=== PATIENT | male | born 1990 | race Caucasian/White ===

== ENCOUNTER 2023-05-25 13:47 | Outpatient (AMB) | payer OTHER, SELFPAY ==
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
== END 2023-05-25 15:03 | disposition home or self-care (01) ==
PROVIDERS: Visit Provider Neurological Surgery
DX: M51.16 Intervertebral disc disorders with radiculopathy, lumbar region (principal); Z98.1 Arthrodesis status
CPT/HCPCS: 99204

== ENCOUNTER → 2023-05-25 13:47 | Outpatient (BNVA) | payer OTHER, SELFPAY | PROVIDERS: Visit Provider Neurological Surgery | DX: M51.16 Intervertebral disc disorders with radiculopathy, lumbar region (principal); Z98.1 Arthrodesis status | CPT/HCPCS: 99202 ==

== ENCOUNTER 2023-06-14 09:27 | Inpatient (IN) | payer OTHER, SELFPAY ==
--- NOTE | 2023-06-08 | ECG_ITS ---
Test Reason : PREOP Blood Pressure : / mmHG Vent. Rate : 098 BPM Atrial Rate : 098 BPM P-R Int : 156 ms QRS Dur : 104 ms QT Int : 334 ms P-R-T Axes : 071 019 053 degrees QTc Int : 426 ms Normal sinus rhythm Incomplete right bundle branch block Borderline ECG No previous ECGs available Referred By: Kita Koenig Electronically Signed By:ADAN WALTON MD
[2023-06-08 12:14] VITALS: BP 154/82; PULSE 99; RESP 20; O2SAT 97; BMI 36.5
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
[2023-06-08 13:37] LABS: Hematocrit 38.7 % (42.0-52.0); Hemoglobin 13.2 g/dl (14.0-18.0); Mean Corpuscular HGB Conc 34.1 g/dl (31.0-36.0); Mean Corpuscular Hemoglobin 28.5 pg (27.0-33.0); Mean Corpuscular Volume 83.6 fL (80.0-98.0); Platelet Count 263 X10*3/uL (160-400); Red Blood Count 4.63 X10*6/uL (4.60-5.80); Red Cell Distribution Width 12.2 % (11.0-16.0); White Blood Count 13.5 X10*3/uL (4.8-10.8)
[2023-06-08 14:42] LABS: Anion Gap 9 (12-20); Blood Urea Nitrogen 16 mg/dL (9-16); Calcium 9.7 mg/dL (8.4-10.2); Carbon Dioxide 31 mmol/L (22-29); Chloride 102 mmol/L (96-108); Creatinine Clr Calc Pharmacy 182.5; Estimated Glomerular Filt Rate > 60; Glucose Random 105 mg/dL (60-115); Potassium 4.2 mmol/L (3.3-5.1); Sodium 138 mmol/L (135-145)
[2023-06-14] VITALS (14 sets, daily range): BP systolic 130–175; BP diastolic 56–101; PULSE 79–108; RESP 16–20; TEMP 36.5–36.7; O2SAT 93–99; BMI 35.7
--- NOTE | ~2023-06-14 | FL_ITS ---
EXAMINATION: XR FLUOROSCOPY WITH IMAGES CLINICAL INFORMATION: 4 digital images obtained in the or. COMPARISON: None available. TECHNIQUE: Fluoroscopy Supervised By: Dr. Ponce. Fluoroscopy Time: 1.4 minutes. Cumulative Dose: 114.0 mGy. DAP: 2.61 Gycm2. Images: 4. FINDINGS: There are 4 digital images obtained in OR revealing bilateral L4 and L5 pedicular screws and interconnecting rods for fusion and solitary disc prosthesis. Also visualized are 2 cages at the L5-S1 disc level likely from remote surgery. No gross bony abnormality. FL/FL guidance in OR IMPRESSION: Fluoroscopy was provided to referring physician for L4 and L5 fusion with bilateral pedicular screws and interconnecting rods and disc prosthesis.
--- NOTE | 2023-06-14 07:12 | P.HPSUR_ITS ---
Pre-Procedural Eval Section A Date of Service: 06/14/23 The patient is an INPATIENT: No Changes since office visit: No Cold of Flu in the past 2 weeks, No New Medical Problems, No Changes in Medication and No Patient answered all questions The History & Physical has been completed within 30 days and I have reviewed it.: No Section B Chief Complaint: Intervertebral disc disorders with radiculopathy, Allergies: Allergies Allergy/AdvReac Type Severity Reaction Status Date / Time Penicillins Allergy Severe Anaphylaxis Verified 06/08/23 12:09 Review of Systems Sugical H&P ROS: Negative: Constitution, Cardiovascular, Respiratory, Neurological, Psychiatric, Hem-Onc, Allergic/Immunologic, Gastrointestinal, G enitourinary, Musculoskeletal, Integumentary, Endocrine and Eyes/Ears/Nose/Throat Exam Surgical H&P Exam: Not Evaluated: HEENT, Not Evaluated: Heart, Not Evaluated: Lungs, Not Evaluated: Extremities, Not Evaluated: Abdomen, Not Evaluated: Skin and Not Evaluated: Neurological Plan Diagnosis/Plan: Unchanged I have reviewed the history and physical and performed a pertinent physical examination on my patient. No changes have occurred unless specified. left L4-5 TLIF Time Spent With Patient Time: Total time managing care of this patient today _16___ minutes.
--- NOTE | 2023-06-14 09:57 | PHA.MEDREC ---
Pharmacy Consult ? Medication Reconciliation Pharmacy has REVIEWED the medication reconciliation.
[2023-06-14] MEDS: methocarbamoL 750 MG TABLET PO (10:00)
[2023-06-14] MEDS: Gabapentin 300 MG CAPSULE PO ×2 (10:00→20:44)
[2023-06-14] MEDS: Scopolamine 1.5 MG PATCH.TD.3 TRANSDERMA (10:00)
[2023-06-14] MEDS: fentaNYL citrate/PF 100 MCG/2 ML VIAL 50 MCG IVPUSH (14:45)
--- NOTE | 2023-06-14 14:52 | P.OP_ITS ---
Operative Note Operative Note Date of Service: 06/14/23 Narrative: Preop diagnosis: Lumbar degenerative disc disease; herniated disc; left lumbar radiculopathy Postop diagnosis: Same Procedure: L4-5 Complete facetectomy; Diskectomy, arthrodesis and implantation cage; L4-5 posterior instrumentation; combination of allograft and allograft Consent Informed Consent was obtained for this operation. I have explained the nature, purpose and benefits of the operation. I have discussed the risks and benefit of the operation including possible complications or adverse events with patient/family. Alternative(s) were discussed with the patient with their relative benefits and risks as well as the consequences of not accepting the operation were included in obtaining consent. Surgeon: Oneil Beavers MD, PhD Assist: Carlos Alberto Gutierrez Description of Procedure: The patient had a previous L5-S1 anterior lumbar interbody fusion done in another institution and developed adjacent degenerative disc disease L5 with a large extruded disc herniation compressing the thecal sac and left L5 nerve root.. The patient was offered a removal the disc herniation followed by a fusion of the L4-5 segment with a transforaminal lumbar interbody fusion. Procedure complication explained. The patient was consented. The patient was brought to the operating room endotracheally intubated. The patient was turned in a prone position the Jerome spine table prepping and draping was done followed by time-out. Two C arms were installed for fluoroscopy. Two paramedian incisions were made in preparation for pedicle screw placement. Following steps were taken for pedicle screw placement: First the pediguard tap was used to create a transpedicular trajectory into the vertebral body. Then a K-wire was advanced into the vertebral body. On the contralateral side, a specially designed instrument was advanced over the K-wire, followed by placement of a pedicle screw in the corresponding pedicle and removal of the K- wire. On the ipsilateral side, the K-wires were bent out of the way after which the transforaminal interbody fusion process was started. The paravertebral muscles were released to expose the L4-5 lamina and facet joint. A high-speed drill was used to a complete facetectomy. The nerve root was retracted medially after which a thorough L4-5 diskectomy was done. An 8 mm and 10 mm trial implants were inserted. More disc material was removed. The endplates were prepared. The anterior 1/3 of disc space was filled with a mixture of autograft and allograft followed by placement of a 12 mm by 32 mm and 0 degree lordosis CTL titanium cage filled with autograft and allograft ending in the the midline on AP fluoroscopic image. Hemostasis was done. The retractor was removed. Finally, pedicle screws were placed over the K-wires and the K-wires were removed. A total 4 pedicle screws were placed with a diameter of 6.5 x 45 mm in the L4 and L5 pedicles. The pedicle screws were connected with a 45 mm comfort and locked down with locking caps. Final x-rays in AP and lateral projection showed good position of the interbody device and posterior instrumentation. Hemostasis was done and the incisions were closed with an 0 Vicryl to fascia and a 3-0 Vicryl for the subdermal layer. All sponge and needle counts were correct. Patient was extubated and transported in a stable condition to recovery room. This procedure was done with assistance of her physician child nutrition assistant who helped an hand reamer in the fluoroscopic imaging, placed pedicle screws and performed hemostasis and closure of the incisions. Anesthesia: General Estimated blood loss: 30 mL Complications: None. Deposition: Admit to inpatient for observation.
[2023-06-14] MEDS: oxyCODONE HCl Immed Release 5 MG TABLET 10 MG PO ×2 (14:58→20:44)
[2023-06-14] MEDS: HYDROmorphone HCl 0.5 MG/0.5 ML SYRINGE IVPUSH ×2 (14:58→15:18)
[2023-06-14] MEDS: 0.9 % Sodium Chloride 1,000 ML 75 ML IVCONT (15:50)
[2023-06-14] MEDS: Cyclobenzaprine HCl 10 MG TABLET PO ×2 (16:01→20:44)
[2023-06-14] MEDS: Acetaminophen 1,000 MG/100 ML PIGGYBACK 400 MG IV ×2 (16:04→21:47)
[2023-06-14] MEDS: Ketorolac Tromethamine 15 MG/ML VIAL IVPUSH ×2 (17:15→23:35)
[2023-06-14] MEDS: ondansetron HCL 4 MG/2 ML VIAL IVPUSH (17:46)
[2023-06-14] MEDS: HYDROmorphone HCl 1 MG/ML SYRINGE IVPUSH ×2 (18:24→21:39)
[2023-06-14] MEDS: Docusate Sodium 100 MG CAPSULE PO (20:44)
[2023-06-14] MEDS: vancomycin HCL 1,500 MG in 0.9 % Sodium Chloride 500 ML 333.33 MG IV (22:02)
[2023-06-15] MEDS: HYDROmorphone HCl 1 MG/ML SYRINGE IVPUSH ×3 (00:26→08:28)
[2023-06-15] MEDS: ondansetron HCL 4 MG/2 ML VIAL IVPUSH (00:31)
[2023-06-15] MEDS: oxyCODONE HCl Immed Release 5 MG TABLET 10 MG PO ×3 (01:47→13:40)
--- NOTE | 2023-06-15 01:57 | PC.NURSE ---
06/14/232099 dressing to lower back saturated with blood.dressing changed.pt restless in the bed in alot of pain turning from side to side and new dressing came off and steri strips came off.new steri strips applied and dsd.pt medicated at 2138 and 25 with dilaudid 1mg IV and oxycodone 10mg po at 2043 and 014.pain at this time down to a 7 from a 10.pt resting a little more comfortable.
[2023-06-15 03:04] VITALS: BP 128/71; PULSE 97; RESP 18; TEMP 36.6; O2SAT 97
[2023-06-15] MEDS: Acetaminophen 1,000 MG/100 ML PIGGYBACK 400 MG IV ×2 (03:43→09:44)
[2023-06-15] MEDS: Ketorolac Tromethamine 15 MG/ML VIAL IVPUSH (05:55)
[2023-06-15 07:37] VITALS: BP 115/57; PULSE 80; RESP 18; TEMP 37; O2SAT 98
--- NOTE | 2023-06-15 07:42 | HO.NEURO.PN ---
Neurosurgery Operative Note Date of Service: 06/15/23 Narrative: Postop day 1. L4-5 transforaminal lumbar interbody fusion Patient reports improvement in his left leg pain but is dealing with back discomfort and tightness. He has not yet been up to walk around but just at the edge of the bed. Nurses report he is voiding okay. He has yet to eat a full meal. Afebrile, vital Signs stable Physical exam: Patient is lying on his side, appears uncomfortable but not in distress, he has full strength of bilateral lower extremities, back dressings have been reinforced. Nurses state that the outer dressings and Steri-Strips came off last night. They put new ones on and placed an outer dressing with an ABD. Impression: Postop day 1. L4-5 transforaminal lumbar interbody fusion, clinically improved from the standpoint of his leg pain but now is dealing with back pain. He is on IV Tylenol, IV Toradol as well as narcotics. His baseline cyclobenzaprine as well. This should be enough to get him up and moving around. Physical therapy will see him but we anticipate him going home today. Patient seen at bedside with Dr. Beavers.
--- NOTE | 2023-06-15 07:45 | PM.DS ---
DS: Providers Provider Date of Service: 06/14/23 Date of admission: 06/14/23 09:27 Date of discharge: 06/15/23 Primary care physician: Unknown Physician Admitting clinician: Oneil Beavers DS: Diagnosis Discharge Diagnosis (1) Lumbar disc herniation with radiculopathy: Status: Acute DS: Summary Time Attestation Discharge coordination time: Less than 30 minutes Quality: Safe Use of Opioids Does Pt have an Active Cancer Diagnosis on the Problem List?: No Quality: Stroke Does the patient have a stroke diagnosis?: No Physical Exam Vital Signs: Vital Signs: Last Vital Signs Temp 98.6 F 06/15/23 07:37 Pulse 80 06/15/23 07:37 Resp 18 06/15/23 07:37 BP 115/57 L 06/15/23 07:37 Pulse Ox 98 06/15/23 07:37 O2 Del Method Room Air 06/15/23 07:37 O2 Flow Rate 2 06/14/23 16:13 BMI result Body Mass Index 35.7 Discharge Plan Discharge Anticipated Discharge Date/Time: 06/15/23 13:00 Patient Disposition: Home, Self-Care Discharge Diagnosis: Lumbar disk herniation Referrals: Physician,Unknown J [Primary Care Provider] - 1 Week Discharge Medications: New docusate sodium [Colace] 100 mg capsule 100 mg PO BID Qty: 20 0RF oxycodone 5 mg tablet See Rx Instructions .ROUTE .COMPLEX PRN (Reason: pain) Qty: 50 0RF Rx Instructions: 1-2 tabs po q4 hours prn pain; Partial Fill upon patient request. Continued cyclobenzaprine 5 mg tablet 10 mg PO TID furosemide 40 mg tablet 40 mg PO DAILY acetaminophen 500 mg Tablet 1,000 mg PO QID ondansetron 4 mg tablet,disintegrating 4 mg PO Q8H PRN (Reason: nausea/vomiting) Discontinued oxycodone 5 mg tablet 5 mg PO Q6H PRN (Reason: pain) Discharge Orders: Discharge Order (Routine); Ordered 06/15/23 Ordered By: Zana Martin Activity on Discharge: As tolerated Stand Alone Forms: Patient Portal Discharge page Activity Restrictions/Additional Instructions: After your spinal surgery we ask you to observe the following restrictions/guidelines: Activity: It is normal to feel some discomfort as you increase your activity, but that will improve with time. We ask you avoid heavy lifting or acitivities that cause pain. As a general rule, 8lbs is a safe limit for lifting right after surgery. Walk as much as you feel comfortable but not to exhaustion. You will feel extra tired the first few days after surgery. Stay well hydrated. It is OK to walk up and down stairs You may return to driving when you are off narcotics (such as vicodin, oxycodone, dilaudid, etc), and you are back to normal functional capacity. If you have any concerns please check with office before driving. Return to work is specific to each patient and each surgery, so please speak with your doctor/PA at first follow up. Please bring paperwork such as FMLA at that time if you need it filled out. Medications: For optimum pain control, it is best to start with a combination of 500 mg of Tylenol every 4 hours with 600 mg of Motrin every 8 hours, and use narcotics as needed in between for breakthrough pain. We will give you a short supply of narcotics after surgery (usually one weeks worth). If you need more please call the office but do not use more than prescribed. You will need to give our office 48 hours notice if you need narcotics refilled and we do not fill narcotics on weekends or evenings. If you are on a narcotic, it is a good idea to take a stool softener such as colace or senna to avoid constipation If you take blood thinner such as aspirin, Plavix, Coumadin, Effient, Eliquis etc for conditions such as Afib, DVT, Pulmonary embolus, coronary disease, stents etc please speak with your surgeon about specific details as to when you can resume these medications. You can resume NSAIDs on post op day 1 (eg: Motrin, Naproxen, etc). Follow up: Please call the office, , after surgery to arrange a 3 week follow up for wound check. Wound Care: You may remove your dressing on the first day after surgery. ?You may ?leave open to air. Please do not remove the steri strips underneath. they will fall off on their own in one week. IT IS NORMAL FOR THE WOUND TO OOZE OR BE BLOODY FOR A FEW DAYS AFTER SURGERY. ?IF THIS HAPPENS JUST PLACE NEW DRESSING OVER IT TO AVOID STAINING CLOTHES. You may shower on post op day # 1 We ask that you do not let the water soak the wound. If it does get wet, just towel dry lightly. Please do not scrub your incision or place any type of chemical/ointment on the wound. No tub baths, pools or jacuzzis for one month. If you have any leaking or redness from your wound, or fevers, please call office Care Plan Goals: discharge home Health Concerns: none Plan of Treatment: discharge home Assessment: stable
[2023-06-15] MEDS: Cyclobenzaprine HCl 10 MG TABLET PO (08:28)
[2023-06-15] MEDS: Gabapentin 300 MG CAPSULE PO (08:28)
[2023-06-15] MEDS: Docusate Sodium 100 MG CAPSULE PO (08:29)
[2023-06-15] MEDS: Furosemide 40 MG TABLET PO (08:29)
--- NOTE | 2023-06-15 08:45 | MHC.CM.PN ---
MD order for home, self-care prior to CM interview. CM acknowledge.
--- NOTE | 2023-06-15 09:26 | HO.POSTANES ---
Post Anesthesia Evaluation Post Anesthesia Evaluation Date of Service: 06/15/23 Vital Signs: Vital Signs Temp Pulse Resp BP Pulse Ox O2 Del Method 06/15/23 07:37 98.6 F 80 18 115/57 L 98 Room Air 06/15/23 03:04 97.9 F 97 18 128/71 97 Room Air 06/14/23 23:06 97.7 F 88 18 140/78 H 96 Room Air Anesthesia: General Endotracheal-GETA Mental Status: Awake Pain Control: Satisfactory Nausea/Vomiting: None Hydration: Adequate Anesthesia-Related Issues: No Anes. Related Issues
[2023-06-15] MEDS: 0.9 % Sodium Chloride 1,000 ML 75 ML IVCONT (09:44)
--- NOTE | 2023-06-15 12:53 | MHC.CM.PN ---
Pt did not D/C prior to CM interview: interview conducted w/SO D/T Pt sleeping. SO reports Pt lives w/her at home. He owns a cane, previously independent, drives, and has bathroom access on the first floor, no prior services. D/C plan is home w/SO via SO. CM to follow.
--- NOTE | 2023-06-15 12:55 | MHC.CM.PN ---
SO identifies Pt's PCP at [facility]; does not recall specific doctor. CM to follow.
--- NOTE | 2023-06-15 12:58 | MHC.CM.PN ---
Spoke w/SO; coonfirmed she will be at [facility] within an hour to pickup driver Pt.
--- NOTE | 2023-06-15 13:29 | MHC.CM.PN ---
Spoke w/PT; recommendation home w/walker. Messaged surgery for ?script. CM to follow.
--- NOTE | 2023-06-15 13:40 | MHC.CM.PN ---
Neurosurgery PA indicates script for walker sent to [facility] at [address] [place] [address] in [place]. Information and address written down and handed to Pt for his D/C disposition.
== END 2023-06-15 14:10 | disposition home or self-care (01) | DRG 304 ==
LOC: HO.SSSA 09:31 → HO.S3 15:26
PROVIDERS: Nurse Practitioner; Admitting Provider Neurological Surgery; Visit Provider Neurological Surgery
PROC: 0SG00A0 Fusion of Lumbar Vertebral Joint with Interbody Fusion Device, Anterior Approach, Anterior Column, Open Approach (ICD-10-PCS; principal; 2023-06-14 11:00)
DX: M51.16 Intervertebral disc disorders with radiculopathy, lumbar region (principal); F11.20 Opioid dependence, uncomplicated; Z87.891 Personal history of nicotine dependence; Z79.899 Other long term (current) drug therapy
CPT/HCPCS: 36415; 80048; 85027; 93005; 97161; C1713; J0131; J1100; J1170; J1885; J1920; J2405; J2704; J3010; J3371; L8699

== ENCOUNTER → 2023-06-14 09:27 | Outpatient (BNV) | payer OTHER, SELFPAY | PROVIDERS: Admitting Provider Neurological Surgery; Visit Provider Neurological Surgery | DX: M51.16 Intervertebral disc disorders with radiculopathy, lumbar region (principal); Z48.89 Encounter for other specified surgical aftercare | CPT/HCPCS: 20930; 20936; 22633; 22840; 22853; 63052; 99024; 99499 ==

== ENCOUNTER 2024-08-14 15:24 | Emergency (ER) | payer SELFPAY ==
--- NOTE | ~2024-08-14 | XR_ITS ---
EXAMINATION: XR CHEST 2 VIEWS HISTORY: cough, chest pain COMPARISON: There are no prior studies for comparison. FINDINGS: PA and lateral views of the chest are submitted. The lungs are expanded and clear. There is no pleural effusion, pneumothorax, or pulmonary vascular congestion. The heart is normal in size. The bones are intact. XR/XR chest 2V IMPRESSION: Normal examination of the chest. Electronically signed by: Bryan Hart MD 08/14/2024 03:59 PM JAMAAL
[2024-08-14 15:27] VITALS: BP 160/91; PULSE 116; RESP 18; TEMP 36.8; O2SAT 96; BMI 33.6
--- NOTE | 2024-08-14 15:36 | ECG_ITS ---
Test Reason : tachy/cp Blood Pressure : */* mmHG Vent. Rate : 115 BPM Atrial Rate : 115 BPM P-R Int : 192 ms QRS Dur : 96 ms QT Int : 318 ms P-R-T Axes : 56 7 48 degrees QTcB Int : 439 ms Sinus tachycardia Incomplete right bundle branch block Borderline ECG When compared with ECG of 08-Jun-2023 13:01, No significant change was found Referred By: Graciela Ruiz Electronically Signed By: CARYN WELCH MD
[2024-08-14 16:09] LABS: IDNOW Serial# 08D9AD1C; Strep A Nucleic Acid Negative (Negative)
[2024-08-14 17:07] LABS: Influenza A PCR POSITIVE (Negative); Influenza B PCR NEGATIVE (Negative); Resp Syncy Virus RNA Qual PCR NEGATIVE (Negative); SARS COV2 PCR INHOUSE NEGATIVE (Negative)
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
[2024-08-14 19:56] VITALS: BP 152/78; PULSE 109; RESP 16; TEMP 36.6; O2SAT 95
[2024-08-14] MEDS: Acetaminophen 325 MG TABLET 975 MG PO (19:57)
[2024-08-14 20:01] VITALS: BP 152/78; PULSE 109; RESP 16; TEMP 36.6; O2SAT 95
== END 2024-08-14 20:02 | disposition home or self-care (01) ==
PROVIDERS: Physician Assistant Medical; Emergency Provider Emergency Medicine Emergency Medical Services; PCP Internal Medicine
DX: J10.1 Influenza due to other identified influenza virus with other respiratory manifestations (principal); R07.9 Chest pain, unspecified; R05.9 Cough, unspecified; R50.9 Fever, unspecified
CPT/HCPCS: 0241U; 71046; 87651; 93005; 99283; 99284

== ENCOUNTER → 2024-08-14 15:36 | Outpatient (BNV) | payer SELFPAY | PROVIDERS: Emergency Provider Emergency Medicine Emergency Medical Services; PCP Internal Medicine; Visit Provider Internal Medicine Cardiovascular Disease | DX: R00.0 Tachycardia, unspecified (principal); R07.9 Chest pain, unspecified; I45.19 Other right bundle-branch block; R94.31 Abnormal electrocardiogram [ECG] [EKG] | CPT/HCPCS: 93010 ==

== ENCOUNTER 2025-01-05 14:54 | Emergency (ER) | payer OTHER, SELFPAY ==
--- NOTE | ~2025-01-05 | XR_ITS ---
EXAMINATION: XR ANKLE, LEFT CLINICAL INFORMATION: pain COMPARISON: None available. TECHNIQUE: AP, lateral, and mortise views of the left ankle. FINDINGS: Intramedullary nail fixed with 2 distal cortical screws traverses an area of nonunion in the distal tibial diaphysis. There is a healed fracture with remodeling and fusiform expansion involving the distal diaphysis of the fibula. See discussion of tibia and fibula. There is subtle irregularity of the far medial shoulder of the talar dome. Ankle mortise is congruent. There is no widening of the syndesmosis. There is dorsal prominence of the talonavicular joint. XR/XR ankle LT min 3V IMPRESSION: Possible small osteochondral lesion involving the far medial talar dome. 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 Electronically signed by: Cole Giron MD 01/05/2025 03:50 PM EDT
--- NOTE | ~2025-01-05 | XR_ITS ---
Exam: 2 view x-ray lower leg TECHNIQUE:: AP and lateral x-rays of the left tibia and fibula. INDICATION: Pain Prior: None FINDINGS: Intramedullary nail secured with 2 distal and proximal cortical screws in place. Distalmost screw traverses areas of intramedullary nail with vertically oriented lucency extending from the distal central portion of the hardware to the posterior margin of the intramedullary nail, situated between the 2 cortical screws. There is transverse lucency across the distal diaphysis of the tibia with adjacent soft tissue calcification and metallic debris laterally. There is extension of bony callus up from the distal bone, not clearly contacting the proximal end of the tibia above the fracture. The distal end shows sclerotic margins There is fusiform expansion of the distal diaphysis of the fibula consistent with healed and remodeled fracture. XR/XR tibia fibula LT 2V IMPRESSION: Distal posterior end of an intramedullary nail appears split. This may be by design, but cannot rule out a break in the device. Suspected nonunion of the distal tibial diaphysis fracture status post ORIF. Healed distal fibular fracture. Electronically signed by: Cole Giron MD 01/05/2025 03:47 PM EDT
[2025-01-05 15:12] VITALS: BP 174/123; PULSE 80; RESP 16; TEMP 36.9; O2SAT 98; BMI 33.7
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
[2025-01-05 15:48] LABS: MANUAL DIFF FLAG NO
[2025-01-05 16:02] LABS: Alanine Aminotransferase 41 U/L (0-40); Albumin Level 5.1 g/dL (3.5-5.0); Alkaline Phosphatase 49 U/L (39-117); Anion Gap 12 (12-20); Aspartate Amino Transferase 33 U/L (5-37); Bilirubin Direct 0.1 mg/dL (0.0-0.5); Bilirubin Total 0.5 mg/dL (0.0-1.0); Blood Urea Nitrogen 14 mg/dL (9-16); C Reactive Protein 0.13 mg/dL (< or = 0.50); Calcium 9.9 mg/dL (8.4-10.2); Carbon Dioxide 30 mmol/L (22-29); Chloride 103 mmol/L (96-108); Estimated Glomerular Filt Rate > 60; Glucose Random 98 mg/dL (60-115); Potassium 4.5 mmol/L (3.3-5.1); Sodium 140 mmol/L (135-145); Total Protein 7.5 g/dL (6.5-8.0)
[2025-01-05 16:06] LABS: Basophils Percent Auto 0.5 % (0-2); Eosinophils Absolute Auto 0.1 X10*3/uL (0.0-0.4); Hematocrit 40.8 % (42.0-52.0); Hemoglobin 13.8 g/dl (14.0-18.0); Imm Gran Abs Auto 0.01 X10*3/uL (0.00-0.03); Imm Gran Pct Auto 0.2 % (0.0-0.4); Lymphocytes Absolute Auto 1.8 X10*3/uL (1.2-4.9); Lymphocytes Percent Auto 30.3 % (20-40); Mean Corpuscular HGB Conc 33.8 g/dl (31.0-36.0); Mean Corpuscular Volume 82.9 fL (80.0-98.0); Mean Platelet Volume 9.1 fL (9.4-12.4); Monocytes Absolute Auto 0.6 X10*3/uL (0.1-1.2); Monocytes Percent Auto 10.2 % (2-11); Neutrophils Absolute Auto 3.5 x10*3/uL (2.0-8.3); Neutrophils Percent Auto 56.8 % (45-73); Platelet Count 290 X10*3/uL (160-400); Red Blood Count 4.92 X10*6/uL (4.60-5.80); Red Cell Distribution Width 12.2 % (11.0-16.0); White Blood Count 6.1 X10*3/uL (4.8-10.8)
[2025-01-05 17:03] LABS: Erythrocyte Sedimentation Rate 12 MM/HR (0-15)
--- NOTE | 2025-01-05 21:27 | PC.NURSE ---
called to waiting room, no answer
== END 2025-01-05 23:04 | disposition left against medical advice (07) ==
PROVIDERS: Physician Assistant Medical; Emergency Provider Emergency Medicine
DX: M79.605 Pain in left leg (principal)
CPT/HCPCS: 36415; 73590; 73610; 80048; 80076; 85025; 85652; 86140; 99281; 99283

== ENCOUNTER → 2025-01-05 15:18 | Outpatient (BNV) | payer BC, SELFPAY | PROVIDERS: Visit Provider Radiology Diagnostic Radiology | DX: M25.572 Pain in left ankle and joints of left foot (principal); M79.662 Pain in left lower leg | CPT/HCPCS: 73590; 73610 ==

== ENCOUNTER 2025-01-06 05:53 | Emergency (ER) | payer BC, SELFPAY ==
--- NOTE | ~2025-01-06 | US_ITS ---
CLINICAL HISTORY: pain, swelling Venous duplex ultrasound left lower extremity Comparison: None Findings: Pulsatile venous waveforms. The visualized deep veins are fully compressible with otherwise normal Doppler color flow and spectral tracings. IMPRESSION: 1. Negative for left lower extremity deep vein thrombosis. 2. Pulsatile venous waveforms may be due to cardiac disease. Correlate clinically. This document has been electronically signed by: Sybil Spear MD on 01/06/2025 08:49:20
--- NOTE | ~2025-01-06 | CT_ITS ---
CLINICAL HISTORY: severe pain swelling CT left ankle without contrast Comparison: 01/05/2025 radiographs Findings: Normal alignment. Partially visualized distally locked tibial nail coursing through a transverse distal tibial diaphysis fracture nonunion (up to 9 mm distraction of the fracture line is seen). Curvilinear lucency within the distal aspect of the nail in the vicinity of the distal most locked screw may be due to nondisplaced hardware fracture or less likely be secondary to hardware design (incidental finding). Correlate clinically/with past surgical history. Additional hardware tracts noted in the distal tibia and distal fibula. Old healed distal fibular shaft fracture. Focal effacement of portions of especially the medial subcutaneous fat due to focal scarring +/-edema. Small subcentimeter medial shoulder of talar dome osteochondral lesion with minimal age-indeterminate focal depression of the neighboring talar articular surface. Small subcentimeter medial shoulder of talar dome osteochondral lesion with minimal age-indeterminate focal depression of the neighboring talar articular surface. Small to mildly prominent dorsal midfoot spurs. Posterior superior calcaneal spur. Impression: Partially visualized distally locked tibial nail coursing through a transverse distal tibial diaphysis fracture nonunion (up to 9 mm distraction of the fracture line is seen). Curvilinear lucency within the distal aspect of the nail in the vicinity of the distal most locked screw may be due to nondisplaced hardware fracture or less likely be secondary to hardware design (incidental finding). Correlate clinically/with past surgical history. Small subcentimeter medial shoulder of talar dome osteochondral lesion with minimal age-indeterminate focal depression of the neighboring talar articular surface. This document has been electronically signed by: Sybil Spear MD on 01/06/2025 10:02:51
[2025-01-06 06:09] VITALS: BP 139/93; PULSE 79; RESP 16; TEMP 36.8; O2SAT 99; BMI 33.0
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
--- OUTSIDE RECORDS SUMMARY | 2025-01-06 07:07 | XMS_ITS | Clinical Summary ---
Author Organization [facility] Address [address] [place] [address] Care Team Providers Care Conservation Technician Name Role Phone Unavailable Primary Care Provider Unavailabl e Social History Tobacco Use Types Packs/Day Years Used Date Smoking Tobacco: Never Assessed Sex and Gender Information Value Date Recorded Sex Assigned at Not on file Legal Sex Male 6:11 PM EST Gender Identity Not on file Sexual Orientation Not on file Last Filed Vital Signs Vital Sign Reading Time Taken Comments Blood Pressure - - Pulse - - Temperature - - Respiratory Rate - - Oxygen Saturation - - Inhaled Oxygen Concentration - - Weight 116 kg (255 lb) 09/15/2022 5:18 PM EST Height 180.3 cm (5' 11 ) 09/15/2022 5:18 PM EST Body Mass Index 35.57 09/15/2022 5:18 PM EST Plan of Treatment Health Maintenance Due Date Last Done Comments DTaP,Tdap,and Td Vaccines (1 - Tdap) 2009 Hepatitis B Vaccines (1 of 3 - 19+ 3-dose series) 2009 Depression Screening 09/22/2022 HIV Screening 09/22/2022 Hepatitis C Screening 09/22/2022 Social Influencers of Health Screening 09/22/2022 COVID-19 Vaccine ( - 2023-2 5 season) 2024 Influenza Vaccine (Season Ended) 2025 HIB Vaccines Aged Out No longer eligi ble based on patient's age to complete this topic HPV Vaccines Aged Out No longer eligi ble based on patient's age to complete this topic Hepatitis A Vaccines Aged Out No long er eligible based on patient's age to complete this topic IPV Vaccines Aged Out No longer eligi ble based on patient's age to complete this topic MMR Vaccines Aged Out No longer eligi ble based on patient's age to complete this topic Meningococcal ACWY Vaccine Aged Out N o longer eligible based on patient's age to complete this topic Meningococcal B Vaccine Aged Out No l onger eligible based on patient's age to complete this topic Pneumococcal Vaccine: Pediat rics (0 to 5 Years) and At-Risk Patients (6 to 64 Years) Aged Out No longer eligible b ased on patient's age to complete this topic RSV Immunization Patients Un viridiana 20 months Aged Out No longer eligible b ased on patient's age to complete this topic Varicella Vaccines Aged Out No longer eligible based on patient's age to complete this topic
[2025-01-06 07:45] LABS: MANUAL DIFF FLAG NO
[2025-01-06 07:47] LABS: Basophils Percent Auto 0.4 % (0-2); Eosinophils Absolute Auto 0.1 X10*3/uL (0.0-0.4); Eosinophils Percent Auto 1.4 % (0-4); Hematocrit 39.8 % (42.0-52.0); Hemoglobin 13.8 g/dl (14.0-18.0); Imm Gran Abs Auto 0.02 X10*3/uL (0.00-0.03); Imm Gran Pct Auto 0.4 % (0.0-0.4); Lymphocytes Absolute Auto 1.5 X10*3/uL (1.2-4.9); Mean Corpuscular HGB Conc 34.7 g/dl (31.0-36.0); Mean Corpuscular Hemoglobin 28.3 pg (27.0-33.0); Mean Corpuscular Volume 81.7 fL (80.0-98.0); Mean Platelet Volume 8.7 fL (9.4-12.4); Monocytes Absolute Auto 0.5 X10*3/uL (0.1-1.2); Monocytes Percent Auto 9.3 % (2-11); Neutrophils Absolute Auto 2.9 x10*3/uL (2.0-8.3); Neutrophils Percent Auto 58.5 % (45-73); Platelet Count 263 X10*3/uL (160-400); Red Blood Count 4.87 X10*6/uL (4.60-5.80); Red Cell Distribution Width 12.1 % (11.0-16.0)
[2025-01-06 08:01] LABS: Alanine Aminotransferase 37 U/L (0-40); Albumin Level 4.7 g/dL (3.5-5.0); Alkaline Phosphatase 45 U/L (39-117); Anion Gap 11 (12-20); Aspartate Amino Transferase 32 U/L (5-37); Bilirubin Direct 0.2 mg/dL (0.0-0.5); Bilirubin Total 0.7 mg/dL (0.0-1.0); Blood Urea Nitrogen 12 mg/dL (9-16); C Reactive Protein 0.12 mg/dL (< or = 0.50); Calcium 9.7 mg/dL (8.4-10.2); Carbon Dioxide 29 mmol/L (22-29); Chloride 106 mmol/L (96-108); Creatinine Clr Calc Pharmacy 153.5; Estimated Glomerular Filt Rate > 60; Glucose Random 98 mg/dL (60-115); Magnesium 2.1 mg/dL (1.6-2.6); Potassium 4.3 mmol/L (3.3-5.1); Sodium 142 mmol/L (135-145)
[2025-01-06] MEDS: Buprenorphine/Naloxone 8/2 mg FILM 1 FILM SUBLINGUAL (08:02)
[2025-01-06 11:49] VITALS: BP 169/99; PULSE 74; RESP 15; TEMP 36.1; O2SAT 97
[2025-01-06 11:50] VITALS: BP 169/99; PULSE 74; RESP 15; TEMP 36.1; O2SAT 97
== END 2025-01-06 11:53 | disposition home or self-care (01) ==
PROVIDERS: Emergency Provider Emergency Medicine; PCP Internal Medicine
DX: M25.572 Pain in left ankle and joints of left foot (principal); T84.84XA Pain due to internal orthopedic prosthetic devices, implants and grafts, initial encounter; M96.672 Fracture of tibia or fibula following insertion of orthopedic implant, joint prosthesis, or bone plate, left leg; Y79.8 Miscellaneous orthopedic devices associated with adverse incidents, not elsewhere classified; Y92.9 Unspecified place or not applicable; M79.605 Pain in left leg
CPT/HCPCS: 36415; 73700; 80048; 80076; 83735; 85025; 86140; 93971; 99284

== ENCOUNTER → 2025-01-06 07:27 | Outpatient (BNV) | payer BC, SELFPAY | PROVIDERS: Emergency Provider Emergency Medicine; PCP Internal Medicine; Visit Provider Radiology Diagnostic Radiology | DX: S82.302K Unspecified fracture of lower end of left tibia, subsequent encounter for closed fracture with nonunion (principal); I77.9 Disorder of arteries and arterioles, unspecified | CPT/HCPCS: 73700; 93971 ==